=== PATIENT | female | born 1995 | race Caucasian/White ===

== ENCOUNTER 2020-11-07 17:12 | Emergency (ER) | payer OTHER ==
[2020-11-07] MEDS ORDERED: NEOMYCIN-POLYMYXIN-HC EAR SUSP 200 DROP/10 ML BOT ONE (17:44)
== END 2020-11-07 17:47 | disposition home or self-care (01) ==
LOC: BURERS 17:12
DX: H60.502 Unspecified acute noninfective otitis externa, left ear (principal)
CPT/HCPCS: 99282